=== PATIENT | female | born 1935 | race Caucasian/White ===

== ENCOUNTER 2016-08-24 19:09 | Emergency (ER) | payer MEDICARE, OTHER ==
[2016-08-24 19:56] VITALS: BP 195/103
--- NOTE | 2016-08-24 20:22 | EDM.PDOC ---
ED HPI GENERAL MEDICAL PROBLEM - General Chief Complaint: Bite:Animal, Insect Stated Complaint: TICK ON BACK Time Seen by Provider: 08/24/16 19:27 Source of Information: Reports: Patient History Limitations: Reports: No Limitations - History of Present Illness INITIAL COMMENTS - FREE TEXT/NARRATIVE: History of present illness: [Patient is here with a dear tick bite on her back it's only been removed. But there was a little bit last time and so she came in to have that removed. He was on less than 24 hours. It was not engorged. She feels fine. To take him manages a dear tick and it is not engorged.] Review of systems: As per history of present illness and below otherwise all systems reviewed and negative. Past medical history: As per history of present illness and as reviewed below otherwise noncontributory. Surgical history: As per history of present illness and as reviewed below otherwise noncontributory. Social history: No reported history of drug or alcohol abuse. Family history: As per history of present illness and as reviewed below otherwise noncontributory. Physical exam: HEENT: Atraumatic, normocephalic, pupils reactive, negative for conjunctival pallor or scleral icterus, mucous membranes moist, throat clear, neck supple, nontender, trachea midline. Lungs: Clear to auscultation Back: Underneath her left scapula she had a small ulceration at the center speck of darkness residual from the tic which I removed with an 18-gauge needle without any difficulty Heart: S1S2, regular, Neuro: Awake, alert, oriented. Exam nonfocal. Diagnostics: [] Therapeutics: [] Impression: [Dear tick bite] Plan: [No antibiotics indicated. Discussed with them the things to watch for as far is lines which they are familiar with.] Definitive disposition and diagnosis as appropriate pending reevaluation and review of above. - Related Data Allergies Allergy/AdvReac Type Severity Reaction Status Date / Time No Known Allergies Allergy Verified 08/24/16 19:46 Home Meds: Home Meds NK [No Known Home Meds] 08/24/16 [History] Past Medical History HEENT History: Reports: Cataract Musculoskeletal History: Reports: Fracture Social & Family History - Tobacco Use Smoking Status *Q: Never Smoker - Alcohol Use Days Per Week of Alcohol Use: 7 Number of Drinks Per Day: 2 Total Drinks Per Week: 14 - Recreational Drug Use Recreational Drug Use: No ED ROS GENERAL - Review of Systems Review Of Systems: ROS reveals no pertinent complaints other than HPI. ED EXAM, ANIMAL BITE - Physical Exam Exam: See Below Course - Vital Signs Last Recorded V/S: Last Vital Signs Temp 36.8 C 08/24/16 19:57 Pulse 91 08/24/16 19:57 Resp 14 08/24/16 19:57 BP 195/103 H 08/24/16 19:57 Pulse Ox 96 08/24/16 19:57 Departure - Departure Time of Disposition: 20:21 Disposition: Home, Self-Care 01 Condition: good Clinical Impression: Tick bite Qualifiers: Encounter type: initial encounter Qualified Code(s): W57.XXXA - Bitten or stung by nonvenomous insect and other nonvenomous arthropods, initial encounter - Discharge Information Forms: ED Department Discharge Additional Instructions: Please followup with your doctor or the emergency room if he developed a rash that we discussed or symptoms that would be consistent with Lyme's which are flulike in nature. This is very unlikely to happen.
== END 2016-08-24 20:25 | disposition home or self-care (01) ==
LOC: JP.ED 19:09
DX: S20.462A Insect bite (nonvenomous) of left back wall of thorax, initial encounter (principal); W57.XXXA Bitten or stung by nonvenomous insect and other nonvenomous arthropods, initial encounter
CPT/HCPCS: 99282; 99283